=== PATIENT | female | born 1965 | race Two or more races ===

== ENCOUNTER 2024-10-31 16:04 | Emergency (ER) | payer OTHER ==
[~2024-10-31] VITALS: Ht 172.7 cm; Wt 90.9 kg
--- NOTE | 2024-10-31 16:25 | ED.PDOC ---
Mult. trauma (HPI) HPI Comments 59 y.o [place]-speaking only female with PMH of HTN, presents to the ED via EMS s/p mechanical fall at work today. Patient reports she was pushing boxes of clothes with metal racks, tripped over the metal railing and fell backwards. Patient ended up hitting the occipital side of her head on the metal railing, lost consciousness for a couple of seconds and woke up complaining of dizziness, nausea, and neck pain radiating down her spine and lumbar region. EMS administrated 100mcg of Fentanyl and 4mg Zofran on scene with some pain improvement and resolved nausea. Patient presents to the ED with C-collar in place. Blood pressure upon arrival read 193/113 but has come down to 185/98. Chief Complaint: Fall Injury Time Seen by MD: 16:15 Reviewed notes: Nurses Notes, Centrifugal Casting Machine Tender Notes, Medications, Allergies Information Source: Patient, Emergency Med Personnel Mode of Arrival: EMS Severity: Moderate Timing: Hours Duration: Since onset Prehospital treatment: C-Collar, Pain Meds (100mcg fentanyl ), Treatment (4mg zofran ) Location: Back, Neck Location of laceration: None Mechanism: Fall Associated signs and symtoms: Headache, Other Past Medical History PAST MEDICAL HISTORY: GERD, HTN Surgical History: Denies all surgeries PERSONAL COMPUTER NETWORK ENGINEER History: No Pertinent PERSONAL COMPUTER NETWORK ENGINEER History Family History Family History: Unknown Social History Smoker: Non-Smoker Alcohol: Denies ETOH Use Drugs: Denies Drug Use Lives In: Home Constitutional: denies: chills, diaphoresis, fatigue, fever, malaise, sweats, weakness, others EENTM: denies: blurred vision, double vision, ear bleeding, ear discharge, ear drainage, ear pain, ear ringing, eye pain, eye redness, hearing loss, mouth pain, mouth swelling, nasal discharge, nose bleeding, nose congestion, nose pain, photophobia, tearing, throat pain, throat swelling, voice changes, others Respiratory: denies: cough, hemoptysis, orthopnea, SOB at rest, shortness of breath, SOB with excertion, stridor, wheezing, others Cardiovascular: reports: syncope; denies: chest pain, dizzy spells, diapho resis, Dyspnea on exertion, edema, irregular heart beat, left arm pain, lightheadedness, palpitations, PND, others Gastrointestinal: reports: nausea; denies: abdomen distended, abdominal pain, blood streaked bowels, constipated, diarrhea, dysphagia, difficulty swallowing, hematemesis, melena, poor appetite, poor fluid intake, rectal bleeding, rectal pain, vomiting, others Genitourinary: denies: abnormal vagina bleeding, burning, dyspareunia, dysuria, flank pain, frequency, hematuria, incontinence, pain, , vagina discharge, urgency, others Neurological: reports: dizziness; denies: fainting, headache, left sided numbness, left sided weakness, numbness, paresthesia, pre-existing deficit, right sided numbness, right sided weakness, seizure, speech problems, tingling, tremors, weakness, others Musculoskeletal: reports: back pain, neck pain; denies: gout, joint pain, joint swelling, muscle pain, muscle stiffness, others Integumetry: denies: bruises, change in color, change in hair/nails, dryness, laceration, lesions, lumps, rash, wounds, others Allergic/Immunocompromised: denies: Difficulty Healing, Frequent Infections, Hives, Itching, others Hematologic/Lymphatic: denies: anemia, blood clots, easy bleeding, easy bruising, swollen glands, others Endocrine: denies: excessive hunger, excessive sweating, excessive thirst, excessive urination, flushing, intolerance to cold, intolerance to heat, unexplained weight gain, unexplained weight loss, others Psychiatric: denies: anxiety, bipolar disorder, depression, hopeless, panic disorder, schizophrenia, sleepless, suicidal, others All Other Systems: Reviewed and Negative Physical Exam General Appearance: Moderate Distress (This appears to be in [id number] distress at time of evaluation. Patient states when she does not move her pain is controlled.), Normal HEENT: Head (Unremarkable cranial evaluation. No signs of trauma. No skull depressions or deformities. No Blood loss.), Normal ENT Inspection, Pharynx Normal, TMs Normal Neck: Other (Patient was C-collar at time of evaluation.) Respiratory: Chest Non-Tender, Lungs Clear, No Accessory Muscle Use, No Respiratory Distress, Normal Breath Sounds Cardiovascular: No Edema, No JVD, No Murmur, No Gallop, Normal Peripheral Pul ses, Regular Rate/Rhythm Breast Exam: Deferred Gastrointestinal: No Organomegaly, Non Tender, No Pulsatile Mass, Normal Bowel Sounds, Soft Genitalia: Deferred Pelvic: Deferred Rectal: Deferred Extremities: No calf tenderness, Normal capillary refill, Normal inspection, Non-tender, No pedal edema Musculoskeletal : Location: Bilateral Extremity Location: Back (Diffuse tenderness to palpation throughout the scapular region and into the lumbar region. No definitive ecchymosis or signs of trauma. Tenderness to palpation throughout. Moderate reduced range of motion.) Apperance: Normal Neurologic: Alert, Normal Affect Cerebellar Function: Normal Reflexes: NOT DONE Skin: Dry, Normal Color, Warm Lymphatic: No Adenopathy Was a procedure done? Was a procedure done?: No Differential Diagnosis Multiple Trauma: Fractures, Spine Injury, Contusion Neck Injury: Cervical Muscle Spasm, Cervical Sprain, Cervical Strain, Cervical Fracture X-Ray, Labs, Meds, VS Vital Signs Date Time Temp Pulse Resp B/P (MAP) Pulse Ox O2 Delivery O2 Flow Rate FiO2 10/31/24 18:08 80 18 154/80 10/31/24 16:54 88 18 98 Room Air* 0 21 10/31/24 16:53 98.1 89 18 135/80 (98) 98 98.1 10/31/24 16:15 98.2 83 18 193/113 (139) 98 Current Medications Medications (Trade) Dose Ordered Sig/Kwasi Route Start Time Stop Time Status Last Admin Morphine Sulfate 4 mg ONCE ONCE IV 10/31/24 18:15 10/31/24 18:16 10/31/24 18:08 Ondansetron HCl (Zofran) 4 mg ONCE ONCE IV 10/31/24 18:15 10/31/24 18:16 10/31/24 18:09 X-Ray, Labs, Meds, VS Comment All studies performed the ED were reviewed by me personally. Imaging studies of the cranium, cervical spine, thoracic spine and lumbar spine were all unremarkable for any acute findings. No subarachnoid hemorrhages or skull fr actures. No vertebrae fractures. Patient sustained head trauma and a back contusion due to her fall event. Advised pain medication as needed as well as ice therapy. Time of 1ST Reevaluation: 18:17 Reevaluation 1ST: Improved Consultation: PCP Patient Education/Counseling: Diagnosis, Treatment, Prognosis Family Education/Counseling: Diagnosis, Treatment, No Family Present Departure 1 Departure Time of Disposition: 18:18 Impression: Primary Impression: Fall Additional Impressions: Head trauma Back contusion Disposition: 01 HOME / SELF CARE / HOMELESS Condition: Stable Additional Instructions: Advised patient utilize pain medication as needed for symptomatic relief as well as ice therapy. e-Prescriptions Hydrocodone-Acetaminophen (Hydrocodone Bitartrate/AC 5-325 mg) 1 Tab Tab 1 TAB PO Q6HP PRN, #15 TAB Prov: KERRY QUIÑONEZ PAC 10/31/24 Ibuprofen Micronized (Ibuprofen) 800 Mg Tab 800 MG PO Q8HP PRN, #20 TAB Prov: KERRY QUIÑONEZ PAC 10/31/24 Discharged With: Self, Relative Critical Care Note Critical Care Time?: No Stability Stability form required: No I personally scribed for KERRY QUIÑONEZ PAC ([email or web address]) on 10/31/24 at 16:25. Electronically submitted by Eva Giraldo ([facility]). KERRY QUIÑONEZ PAC Oct 31, 2024 16:25
[2024-10-31 16:53] VITALS: TEMP 98.1
[2024-10-31 16:54] VITALS: PULSE 88; RESP 18; O2SAT 98
--- NOTE | 2024-10-31 17:19 | DVH ---
EXAM: CT HEAD WITHOUT CONTRAST HISTORY: Fall/trauma/LOC COMPARISON: None TECHNIQUE: Axial images were obtained and reformatted in coronal and sagittal planes. All CT scans at this medical facility are performed using dose modulation techniques as appropriate t o a performed exam including the following: Automated exposure control was utilized; adjustment of th e MA and/or KV according to patient size; and use of iterative reconstruction technique. CT Dose: CTDI volume is 56 mGy. Dose-length product is 903 mGy*cm FINDINGS: Supratentorial Region: No evidence for large acute territorial ischemia. No intracranial hemorrhage is noted. Posterior Fossa: No acute abnormality. Brainstem: Unremarkable. Sellar/Suprasellar Region: Unremarkable. Ventricles, Cisterns, Sulci: Age-appropriate. Orbits: Unremarkable. Paranasal Sinuses: Unremarkable. Mastoid Air Cells: Unremarkable. Vasculature: Unremarkable. Bones/Soft Tissues: No acute abnormality. Other: None. IMPRESSION: 1. No acute intracranial process.
--- NOTE | 2024-10-31 17:28 | DVH ---
EXAM: CT CERVICAL WITHOUT CONTRAST INDICATION: Fall/trauma EXAM DATE: 10/31/2024 04:50 PM COMPARISON: CT HEAD WITHOUT CONTRAST on DOS: 10/31/24 TECHNIQUE: Multiple axial CT images of the cervical spine were obtained using bone algorithm. Axial a nd coronal reformatting was done. Bone and soft tissue windows were reviewed. Radiation Dose Information: CT Dose: CTDI volume is 25.78 mGy. Dose-length product is 624.16 mGy*cm FINDINGS: The cervical alignment is intact. No acute cervical spine fracture is identified. The vertebral body heights are intact. No suspicious osseous lesions are identified. Multilevel mild degenerative changes of the cervical spine. There is no prevertebral soft tissue swelling. Possible cerumen within bilateral external auditory ca nals. IMPRESSION: No evidence of acute cervical spine fracture or traumatic malalignment. All CT scans at this medical facility are performed using dose modulation techniques as appropriate t o a performed exam including the following: Automated exposure control was utilized; adjustment of th e MA and/or KV according to patient size; and use of iterative reconstruction technique.
--- NOTE | 2024-10-31 17:33 | DVH ---
EXAM: CT LS SPINE WO CONTRAST HISTORY: Fall/trauma COMPARISON: None CTDIvol 33.5 mGy, DLP 1080.22 mGy*cm. TECHNIQUE: Multiple axial CT images of the spine were obtained using bone algorithm. Axial and coron al reformatting was done. Bone and soft tissue windows were reviewed. FINDINGS: No CT evidence of definite acute fracture, spinal dislocation, or significant appearing acute subluxa tion is seen. The visualized paraspinal soft tissues are grossly unremarkable. Mild central spinal canal stenosis at the L2-L3 level. 3 mm osteophyte and disc protrusion right par acentral in nature, axial image 53, series 2. Moderate facet arthropathy. 2 mm annular disc bulge at the L3-L4 level. [id number] central spinal canal stenosis. 3 mm annular disc bulge at the L4-L5 level. Moderate central spinal canal stenosis. Moderately severe bilateral facetarthropathy. IMPRESSION: 1. No definite CT evidence of acute fracture or dislocation of the bony spine. 2. Moderate multi level degenerative disc disease is discussed above. 3. No acute fracture 4. No lytic or blastic changes 5. No abdominal aortic aneurysm. 6. No obstructive uropathy
--- NOTE | 2024-10-31 17:42 | DVH ---
CT OF THE THORACIC SPINE WITHOUT CONTRAST HISTORY: Fall/trauma COMPARISON: None TECHNIQUE: Axial images through the thoracic spine were obtained without contrast. Coronal and sagitt al reformats were obtained. One or more of the following radiation dose reduction techniques were use d for this examination: automated exposure control, adjustment of the mA and/or kV according to patie nt size, use of iterative reconstruction technique. FINDINGS: There are 12 rib-bearing thoracic type vertebral bodies. Alignment is maintained. Mild posterior web content producer keyona appearing compression fracture or height loss of T10. Vertebral body heights are otherwise mainta ined. No acute fracture. Mild multilevel thoracic spondylosis with multilevel osteophyte formation an d mild degenerative disc disease. There is no high-grade neural foraminal or spinal stenosis. Visuali zed lungs are clear. Posterior paraspinal soft tissues are unremarkable. There is hepatic steatosis. IMPRESSION: 1. No acute fracture or traumatic malalignment. 2. Mild multilevel thoracic spondylosis. 3. Hepatic steatosis.
[2024-10-31] MEDS: MORPHINE SULFATE 4 MG/ML SYR/VIAL IV ONE (18:08)
[2024-10-31] MEDS: ONDANSETRON HCL 4 MG/2 ML VIAL IV ONE (18:09)
[2024-10-31] MEDS ORDERED: HYDR-4902 PO (18:19)
[2024-10-31] MEDS ORDERED: IBUP-1455 PO (18:19)
[2024-10-31 18:42] VITALS: BP 145/75; PULSE 85; RESP 18; O2SAT 98
== END 2024-10-31 18:51 | disposition home or self-care (01) ==
LOC: ER 16:04 → EDBD 16:04 → ER 18:51
DX: S20.229A Contusion of unspecified back wall of thorax, initial encounter (principal); S06.891A Other specified intracranial injury with loss of consciousness of 30 minutes or less, initial encounter; I10 Essential (primary) hypertension; K21.9 Gastro-esophageal reflux disease without esophagitis; W18.09XA Striking against other object with subsequent fall, initial encounter; Y93.89 Activity, other specified; Y92.89 Other specified places as the place of occurrence of the external cause; Y99.0 Civilian activity done for income or pay
CPT/HCPCS: 70450; 72125; 72128; 72131; 96374; 96375; 99285; J2270; J2405